=== PATIENT | female | born 1965 | race African-American/Black ===

== ENCOUNTER 2017-11-02 15:07 | Emergency (ER) | payer MEDICARE | END 2017-11-02 18:15 | disposition home or self-care (01) | LOC: D.ER 15:07 | DX: S00.81XA Abrasion of other part of head, initial encounter (principal); W19.XXXA Unspecified fall, initial encounter; Y93.89 Activity, other specified; Y92.238 Other place in hospital as the place of occurrence of the external cause; S59.901A Unspecified injury of right elbow, initial encounter ==